=== PATIENT | male | born 1970 | race Caucasian/White ===

== ENCOUNTER 2019-10-26 15:46 | Emergency (ER) | payer MEDICARE ==
[~2019-10-26] VITALS: Ht 167.6 cm; Wt 84.1 kg
[2019-10-26 15:57] VITALS: Ht 167.6 cm; Wt 84.1 kg
[2019-10-26] MEDS ORDERED: GLUCOPHAGE500 MG (15:58)
[2019-10-26] MEDS ORDERED: GLUCOTROL ER2.5 MG (15:58)
[2019-10-26] MEDS ORDERED: ZOLOFT100 MG (15:58)
[2019-10-26] MEDS ORDERED: RISPERDAL4 MG (15:58)
[2019-10-26 16:12] LABS: BASOPHILS 0.1 % (0-2); EOSINOPHILS 0.8 % (0-7); HEMOGLOBIN 15.1 g/dL (13.5-17.5); IMMATURE GRANULOCYTES 0.2 % (0-5); LYMPHOCYTES 25.1 % (15-50); MCH 32.2 pg (26.0-34.0); MCHC 35.1 g/dL (31.0-37.0); MCV 91.7 fL (80.0-100.0); MEAN PLATELET VOLUME 10.7 fL (7.4-10.4); MONOCYTES 3.7 % (2-11); NEUTROPHILS 70.1 % (40-80); PLATELET COUNT 318 10x3/uL (130-400); RBC 4.69 10x6/uL (4.20-6.10); RDW 12.4 % (11.5-14.5); WBC 14.6 10x3/uL (4.8-10.8)
[2019-10-26 16:22] LABS: KETONE - SERUM NEGATIVE (NEGATIVE)
[2019-10-26 16:33] LABS: ALBUMIN 3.2 g/dL (3.4-5.0); ALKALINE PHOSPHATASE 115 U/L (46-116); ALT (SGPT) 26 U/L (10-68); CALC OSMOLALITY 283 mosm/kg (275-300); CALCIUM 8.6 mg/dL (8.5-10.1); CARBON DIOXIDE 22.2 mmol/L (21.0-32.0); CHLORIDE - SERUM 98 mmol/L (98-107); CREATININE - SERUM 1.1 mg/dL (0.6-1.3); POTASSIUM - SERUM 3.6 mmol/L (3.5-5.1); PROTEIN - SERUM 7.1 g/dL (6.4-8.2); SODIUM 133 mmol/L (136-145); UREA NITROGEN 13 mg/dL (7-18); eGFR NON AFRICAN AMERICAN 75 mL/min (90-120)
[2019-10-26 16:38] LABS: GLUCOSE 424 mg/dL (74-106)
[2019-10-26 20:23] VITALS: BP 136/74
== END 2019-10-26 20:26 | disposition home or self-care (01) ==
LOC: D.ER 15:46
PROVIDERS: Family Medicine
DX: E11.9 Type 2 diabetes mellitus without complications (principal); K02.9 Dental caries, unspecified; Z79.84 Long term (current) use of oral hypoglycemic drugs